=== PATIENT | female | born 1985 | race Caucasian/White ===

== ENCOUNTER → 2019-08-25 | Outpatient (CLI) | payer BC ==
[~2019-08-25] MED LIST: AMOXICILLIN 8751 TAB PO; BIRTHCONTROL; LORTAB 5/500 501 TAB PO
== END ==
LOC: COL.RAD 07:03
DX: R61 Generalized hyperhidrosis (principal); Z80.7 Family history of other malignant neoplasms of lymphoid, hematopoietic and related tissues
CPT/HCPCS: Q9967